=== PATIENT | female | born 1950 | race Asian ===

== ENCOUNTER 2016-08-31 17:54 | Emergency (ER) | payer SELFPAY ==
[~2016-08-31] VITALS: Ht 154.9 cm; Wt 58.6 kg
[~2016-08-31 17:54] MED LIST: ASPI-825 PO; METO-325 PO
[2016-08-31] MEDS ORDERED: ATOR20TA86 PO (18:12)
[2016-08-31] MEDS ORDERED: LISI-662 PO (18:12)
[2016-08-31] MEDS ORDERED: ACETAMINOPHEN 325 MG TABLET PO ONE (18:45)
[2016-08-31 19:05] VITALS: BP 157/96
== END 2016-08-31 19:06 | disposition home or self-care (01) ==
LOC: EMS 17:56
DX: R51 Headache (principal); E78.00 Pure hypercholesterolemia, unspecified; I10 Essential (primary) hypertension
CPT/HCPCS: 99283

== ENCOUNTER 2016-11-11 23:12 | Emergency (ER) | payer OTHER ==
[~2016-11-11] VITALS: Ht 156.2 cm; Wt 57.7 kg
[~2016-11-11 23:12] MED LIST changes: +ATOR20TA86 PO; +LISI-662 PO
[2016-11-12] MEDS ORDERED: ASPIRIN 325 MG EC TABLET PO ONE (04:00)
[2016-11-12] MEDS ORDERED: HYDROCODONE/ACETAMINOPHEN 5-325 MG TABLET PO ONE (04:00)
[2016-11-12 06:47] VITALS: BP 136/60
== END 2016-11-12 06:49 | disposition home or self-care (01) ==
LOC: EMS 23:13
DX: R07.9 Chest pain, unspecified (principal); R06.02 Shortness of breath; R00.2 Palpitations; E78.00 Pure hypercholesterolemia, unspecified; I10 Essential (primary) hypertension; Z79.82 Long term (current) use of aspirin; Z85.3 Personal history of malignant neoplasm of breast
CPT/HCPCS: 93005; 99285